=== PATIENT | male | born 1995 | race Two or more races ===

== ENCOUNTER 2021-03-23 17:06 | Emergency (ER) | payer BC, MEDICAID ==
[~2021-03-23] VITALS: Ht 172.7 cm; Wt 68.0 kg
[2021-03-23 17:25] VITALS: BP 90/54
== END 2021-03-23 18:32 ==
LOC: ER 17:06
DX: M54.6 Pain in thoracic spine (principal); F17.210 Nicotine dependence, cigarettes, uncomplicated; Z98.890 Other specified postprocedural states; V49.49XA Driver injured in collision with other motor vehicles in traffic accident, initial encounter; Y93.89 Activity, other specified; Y92.488 Other paved roadways as the place of occurrence of the external cause; Y99.8 Other external cause status